=== PATIENT | female | born 1965 | race Caucasian/White ===

== ENCOUNTER → 2017-01-17 | Outpatient (CLI) | payer BC ==
[~2017-01-17] MED LIST: CONJ0.3T3 PO; DOXY40CA PO; PANT40TA PO
--- NOTE | 2017-01-17 15:24 | MAMMOGRAPHY REPORT ---
BILATERAL DIGITAL SCREENING MAMMOGRAM TOMOSYNTHESIS WITH CAD: 01/17/2017 CLINICAL HISTORY: Routine screening. Patient has no complaints. TECHNIQUE: Breast tomosynthesis in addition to standard 2D mammography was performed. Current study was also evaluated with a Computer Aided Detection (CAD) system. COMPARISON: Comparison is made to exams dated: 09/15/2015 mammogram, 04/12/2014 mammogram, 10/09/2012 mammogram, 10/07/2012 mammogram - [facility], 12/25/2010 mammogram, and 07/26/2009 [facility]ado mogram. BREAST COMPOSITION: There are scattered areas of fibroglandular density in both breasts. FINDINGS: No suspicious masses, calcifications, or areas of architectural distortion are noted in e ither breast. There has been no significant interval change compared to prior exams. IMPRESSION: ACR BI-RADS CATEGORY 1: NEGATIVE There is no mammographic evidence of malignancy. A 1 year screening mammogram is recommended. The p atient will receive written notification of the results. Approximately 10% of breast cancers are not detected with mammography. A negative mammographic repor t should not delay biopsy if a clinically suggestive mass is present. Katja Galo M.D. ah/:01/17/2017 13:41:10 Tool Crib Clerk: Marta SÁNCHEZ(R)(M), [facility] letter sent: Normal 1/2 BI-RADS Code: ACR BI-RADS Category 1: Negative
== END | disposition home or self-care (01) ==
LOC: C.MAMM 13:08
PROVIDERS: ATTEND Family Medicine
DX: Z12.31 Encounter for screening mammogram for malignant neoplasm of breast (principal)

== ENCOUNTER → 2017-03-26 | Outpatient (CLI) | payer BC | END | disposition home or self-care (01) | LOC: C.PAPS 09:30 | PROVIDERS: ATTEND Obstetrics & Gynecology | DX: Z01.419 Encounter for gynecological examination (general) (routine) without abnormal findings (principal) ==

== ENCOUNTER 2018-04-17 14:34 | Emergency (ER) | payer BC ==
[~2018-04-17] VITALS: Ht 154.9 cm; Wt 49.6 kg
[2018-04-17 14:54] VITALS: TEMP 36.9; Ht 154.9 cm; Wt 49.6 kg
--- NOTE | 2018-04-17 15:23 | EMERGENCY ROOM VISIT NOTE ---
ED Visit Note First contact with patient: 15:01 CHIEF COMPLAINT: Facial laceration HISTORY OF PRESENT ILLNESS: This 53-year-old female patient presents emergency department private vehicle complaining of a laceration to the right eyebrow that occurred around 2 PM today. Patient states that she caught her eye on the corner of a dorm window. There was no loss of consciousness, vomiting, or unusual behavior afterwards. Denies neck pain. No headache, nausea, or blurred vision. There is minimal bleeding. The patient rates the pain as throbbing and 7/10. The patient's tetanus shot is not up to date. She denies any previous head injuries or facial fractures. REVIEW OF SYSTEMS: A 6 system review of systems was completed with positives and pertinent negatives listed in the HPI. ALLERGIES: Reviewed in chart, see below. MEDICATIONS: Reviewed in chart, see below. PMH: Reviewed in chart, see problem list below. SOCIAL HISTORY: Lives at home with family. Denies tobacco use per PHYSICAL EXAM: Vital Signs: Reviewed Nurse's notes, vital signs stable. GENERAL : Pleasant and cooperative, in no acute distress, well-developed, well- nourished. NEURO: The patient is alert and oriented to person place and time. No focal neurological defects. EYES: Pupils are round, equal, and react to light. EOMI. EARS: No hemotympanum. NECK: Supple. No cervical spine tenderness. FACE: No facial bone tenderness or mandibular tenderness. The mouth can open fully. The teeth are well aligned. No loose or chipped teeth. SKIN: There is a 1 cm laceration just below the right eyebrow. The edges gape apart with traction. There is no active bleeding and no foreign material in the wound. There are no deep structures present. Capillary refill less than two seconds. Normal sensation to light and sharp touch. EMERGENCY DEPARTMENT COURSE: I examined the patient. Verbal consent was obtained to perform the procedure. Using sterile technique the wound was cleansed with Betadine. The area was sterilely draped. Patient was offered LET gel to anesthetize the laceration, she states she can tolerate the pain and does not want to wait for this. The wound was cleansed with chlorhexidine scrub. The wound was then copiously irrigated under pressure with sterile saline. The wound was explored and was as described above. The laceration was repaired using 3 layers of Dermabond with the wound edges being well approximated. The patient tolerated the procedure well. Hemostasis was achieved. The patient was given Boostrix immunization. Patient was educated regarding wound care, scar care, follow-up, and return precautions, she verbalized understanding. The patient was discharged home in good condition and ambulatory. DIAGNOSIS: Facial laceration DISCHARGE INSTRUCTIONS: Keep wound clean and dry. Do not allow any crusting or dried blood to accumulate on sutures. If this occurs, use a 1:1 solution of hydrogen peroxide/water on a Q-tip to clean the wound. Use an antibiotic ointment for 3 days, then let wound dry. Suture removal in 5-7 days. Return sooner for any signs of infection (increasing redness, swelling, drainage, fever ). Ice for swelling. Ibuprofen 600 mg and Tylenol 1000 mg every 6 hrs for pain. Keep covered when in sun until sutures removed then SPF 50 or higher for one year. Vitamin E oil if desired two weeks after suture removal for reduction of scar. Problem List Medical Problems: (1) Achilles tendinitis Status: Chronic (2) Hyperlipidemia Status: Chronic Current/Historical Medications Scheduled Estrog Conj/Medryoxyprog Acet (Prempro 0.3MG/1.5MG), 1 TAB PO DAILY Pantoprazole (Protonix), 40 MG PO DAILY Allergies Coded Allergies: Prochlorperazine (Verified Allergy, Severe, TONGUE SWELLING. JAW SHIFTING. , 03/04/15) Uncoded Allergies: SULFA (Allergy, Intermediate, RASH, 03/04/15) Vital Signs Date Time Temp Pulse Resp B/P (MAP) Pulse Ox O2 Delivery O2 Flow Rate FiO2 04/17/18 15:44 74 18 127/81 98 04/17/18 14:54 36.9 80 18 131/83 96 Room Air Medications Administered Medications (Trade) Dose Ordered Sig/Ritchie Route Start Time Stop Time Status Last Admin Dose Admin Diphtheria/ Pertussis/Tetanus Vacc (Adacel Inj) 0.5 ml ONCE ONCE IM. 04/17/18 15:30 04/17/18 15:31 DC 04/17/18 15:37 0.5 ML Departure Information Impression Primary Impression: Facial laceration Dispostion Home / Self-Care Condition GOOD Referrals Bebeto Gar D.OJulio C (PCP) Patient Instructions ED Laceration Facial Skin Glue, [employer] Additional Instructions You were evaluated and treated in the emergency department for your facial laceration. The laceration was repaired using Dermabond (skin glue). You were given a tetanus booster today. The Dermabond should fall off naturally over the next 5-7 days. Do not pick at the glue, and do not apply ointments or lotions to the glue. You may wash over the area with soap and water, but do not scrub over the glued area. Pat dry after washing. Keep covered when in sun until the wound is fully healed, then SPF 50 or higher for one year. Vitamin E oil if desired two weeks after the glue has fallen off for reduction of scar. Please seek immediate medical attention for any signs of infection (increasing redness, swelling, pus drainage, streaking up the arm, fever/chills). Problem Qualifiers Primary Impression: Facial laceration Encounter type: initial encounter Qualified Codes: S01.81XA - Laceration without foreign body of other part of head, initial encounter
[2018-04-17] MEDS ORDERED: DIPHTHERIA/TETANUS/PERTUSSIS 0.5 ML SYR/VIAL IM. ONE (15:30)
[2018-04-17 15:44] VITALS: BP 127/81; PULSE 74; O2SAT 98
== END 2018-04-17 15:44 | disposition home or self-care (01) ==
LOC: C.EDB 14:35 → C.EDD 15:44
DX: S01.81XA Laceration without foreign body of other part of head, initial encounter (principal); W45.8XXA Other foreign body or object entering through skin, initial encounter; M76.60 Achilles tendinitis, unspecified leg; E78.5 Hyperlipidemia, unspecified; Z88.8 Allergy status to other drugs, medicaments and biological substances; Z23 Encounter for immunization